=== PATIENT | male | born 1980 | race Two or more races ===

== ENCOUNTER 2024-09-19 19:50 | Emergency (ER) | payer SELFPAY ==
[~2024-09-19] VITALS: Ht 175.3 cm; Wt 91.0 kg
[2024-09-19 19:53] VITALS: O2SAT 98
[2024-09-19 20:50] VITALS: TEMP 36.7
[2024-09-19 21:13] LABS: CHLORIDE 103 mEq/L (98-107); SODIUM 137 mEq/L (136-145)
[2024-09-19 21:14] LABS: BASOPHILS % 2.6 % (0.0-2.0); CALCIUM 9.3 mg/dL (8.7-10.4); CARBON DIOXIDE 25 mEq/L (21-32); HEMATOCRIT. 46.5 % (42.0-52.0); HEMOGLOBIN. 15.8 g/dL (14.0-18.0); LYMPHOCYTES % 17.7 % (20.0-50.0); MEAN CORPUSCULAR HEMOGLOBIN 32.1 pg (28.0-32.0); MEAN CORPUSCULAR HGB CONC 33.9 g/dL (31.0-37.0); MEAN CORPUSCULAR VOLUME 94.6 fL (80.0-94.0); MEAN PLATELET VOLUME 7.4 fl (7.4-10.4); MONOCYTES % 6.2 % (2.0-8.0); NEUTROPHILS % 66.5 % (40.0-76.0); PLATELET 314 x1000/uL (130-400); RED BLOOD CELL COUNT 4.91 mill/uL (4.7-6.1); RED CELL DISTRIBUTION WIDTH 13.9 % (11.6-14.6); WHITE BLOOD COUNT 10.5 x1000/uL (4.5-11.0)
[2024-09-19 21:19] LABS: CREATININE 0.9 mg/dL (0.6-1.3); GLUCOSE 110 mg/dL (70-105); UREA NITROGEN BLOOD 13 mg/dL (9-23)
[2024-09-19 21:20] LABS: ETHANOL BLOOD < 10 mg/dL (<10)
[2024-09-19 23:23] VITALS: BP 147/75; PULSE 88; RESP 15; O2SAT 98
== END 2024-09-19 23:44 | disposition home or self-care (01) ==
LOC: ER 19:50
DX: R56.9 Unspecified convulsions (principal); I10 Essential (primary) hypertension
CPT/HCPCS: 36415; 80048; 80320; 85025; 99284; G0480